=== PATIENT | female | born 1955 | race Caucasian/White ===

== ENCOUNTER → 2017-03-21 | Outpatient (CLI) | payer BC, OTHER ==
[~2017-03-21] MED LIST: ALPRAZOLAM PO; BENTYL PO; CELEBREX50 MG PO; CIPROFLOXACIN500 M3 PO; CREON DR 24,001 EACH PO; CREON PO; Creon PO; DOXYCYCLINE 10100 MG PO; FENTANYL 0.50 MCG/ML IV PUSH; HYDROCODON-ACE1 EAC8 PO; HYDROCODON-ACE1 EACH PO; HYOSCYAMIN125 MCG/5; IBUPROFEN 200200 M1 PO; INVANZ1 GM IV; KEFLEX500 MG PO; LEVSIN0.125 MG PO; LORAZEPAM 22 MG/1 ML IV PUSH; LORTAB 5 MG/5001 TA1 PO; MARINOL2.5 MG PO; MEGACE ES625 MG/5 M PO; MOBIC7.5 MG PO; NEURONTIN600 MG PO; NORCO 10-325 T1 EACH PO; NORCO 5-325 TA1 EACH PO; NORCO 7.5-3251 EACH PO; ONDANSETRON HCL4 M2 IV PUSH; OPIUM10 MG/1 ML; OXYCODONE20 MG/1 M1 PO; OXYCONTIN60 MG PO; PERCOCET 7.5-31 EACH PO; PERIDEX 0.12%473 M1; PROBIOTIC1 EAC1 PO; RELAFEN500 MG PO; REQUIP 1 MG TABL1 M1 PO; REQUIP PO; SODIUM CHLORID100 M4 IV; TRAMADOL 50 MG50 MG PO; VISTARIL 25 MG25 M1 PO; XANAX 0.25 MG0.25 MG PO
== END ==
LOC: CAT 10:59
DX: K86.1 Other chronic pancreatitis (principal)

== ENCOUNTER 2019-03-02 17:58 | Inpatient (IN) | payer BC, OTHER ==
[~2019-03-02] VITALS: Ht 167.6 cm; Wt 43.8 kg
[~2019-03-02 17:58] MED LIST changes: +CARAFATE 1 GM TA1 G1 PO; +LEVEMIR SUBQ; +LIDODERM1 EACH TRANSDERM; +MELATONIN3 MG PO; +NOVOLOG100 UNIT/1 SUBQ; +OMEPRAZOLE 20 M20 M1 PO; +OPIUM TINC10 MG/1 M1 PO; +OXYCODONE HCL20 M1 PO; +ROXICODONE5 MG PO; +UNICOMPLEX M TA1 TA1 PO; +VITAMIN A8000 UNI1 PO; +VITAMIN B-121000 MC3 PO; +VITAMIN D50000 UNIT PO; +ZOFRAN4 MG PO
[2019-03-02 18:29] VITALS: BP 145/85
[2019-03-02 18:34] LABS: URINE BILIRUBIN NEGATIVE (Negative); URINE BLOOD 1+ (Negative); URINE CLARITY CLEAR; URINE COLOR YELLOW; URINE GLUCOSE-RANDOM* NEGATIVE (Negative); URINE KETONES NEGATIVE (Negative); URINE LEUKOCYTES-REFLEX NEGATIVE (Negative); URINE NITRITE-REFLEX NEGATIVE (Negative); URINE PROTEIN (DIPSTICK) NEGATIVE (Negative); URINE SPECIFIC GRAVITY <= 1.005 (1.005-1.035); URINE UROBILINOGEN 0.2 E.U./dl (0.2-1.0)
[2019-03-02 19:19] LABS: BACTERIA-REFLEX 1-9 Few /HPF (None Seen); CASTS None Seen /LPF (None Seen); CRYSTALS None Seen /LPF (None Seen); SQUAMOUS 0-3 Few /LPF (0-3); URINE RBC None Seen /HPF (0-2); URINE WBC-REFLEX None Seen /HPF (0-5)
[2019-03-02 20:11] LABS: ABSOLUTE NEUTROPHILS 11.6 thou/uL (1.4-8.2); BASOPHILS 0.5 % (0.0-2.0); EOSINOPHILS 0.3 % (0.0-3.0); HEMATOCRIT 34.4 % (37.0-47.0); HEMOGLOBIN 11.3 gm/dL (12.0-15.0); LYMPHOCYTES 16.5 % (24.0-44.0); MCH 30.9 pg (26.0-34.0); MCV 93.7 fL (80.0-100.0); MONOCYTES 7.1 % (1.0-8.0); PLATELET COUNT 378 thou/uL (150-400); POLYS 75.6 % (36.0-66.0); RBC 3.67 mil/uL (4.20-5.00); RDW 14.5 % (10.5-14.5); WBC 15.4 thou/uL (4.0-11.0)
[2019-03-02 20:34] LABS: ANION GAP 8 mmol/L (7-16); BUN 8 mg/dL (7-18); CALCIUM 8.9 mg/dL (8.5-10.1); CHLORIDE 98 mmol/L (98-107); CO2 24 mmol/L (21-32); CREATININE 0.6 mg/dL (0.6-1.0); GLUCOSE 111 mg/dL (74-106); SODIUM 130 mmol/L (136-145)
[2019-03-02 20:44] LABS: ALBUMIN 3.4 g/dL (3.4-5.0); LIPASE 82 U/L (73-393); SGOT 23 U/L (15-37); SGPT 18 U/L (30-65); TOTAL BILIRUBIN 0.5 mg/dL (<0.1-1.0); TOTAL PROTEIN 7.1 g/dL (6.4-8.2); TROPONIN-I <0.06 ng/mL (<0.06)
[2019-03-02] MEDS ORDERED: CALTRATE-600 W1 EACH PO (22:47)
[2019-03-02] MEDS ORDERED: KIDS VITAMIN400 UNIT PO (22:48)
[2019-03-02] MEDS ORDERED: NOVOLOG100 UNIT/1 SUBQ (22:49)
[2019-03-02] MEDS ORDERED: CULTURELLE KID1 EAC1 PO (22:51)
[2019-03-02] MEDS ORDERED: TRAMADOL 50 MG50 MG PO (22:53)
[2019-03-03] VITALS (38 sets, daily range): BP systolic 124–168; BP diastolic 64–98
[2019-03-03 05:41] LABS: HEMATOCRIT 31.8 % (37.0-47.0); HEMOGLOBIN 10.4 gm/dL (12.0-15.0); MCH 30.8 pg (26.0-34.0); MCHC 32.7 g/dL (28.0-37.0); MCV 94.4 fL (80.0-100.0); RBC 3.37 mil/uL (4.20-5.00); RDW 14.5 % (10.5-14.5); WBC 12.4 thou/uL (4.0-11.0)
[2019-03-03 05:55] LABS: CALCIUM 8.6 mg/dL (8.5-10.1); CREATININE 0.6 mg/dL (0.6-1.0); POTASSIUM 3.8 mmol/L (3.5-5.1)
--- NOTE | 2019-03-03 07:20 | NUR ---
ASSUMED CARE OF PATIENT FROM IR. GROIN SITE INSPECTED. SON AT BEDSIDE, ABLE TO PROVIDE MOST INFORMATION. POC GOALS ESTABLISHED. PAIN MANAGEMENT MODERATLY EFFECTIVE. REPORT GIVEN TO DAY RN.
--- NOTE | 2019-03-03 08:38 | EKG ---
[place] [address] [facility] [place] [address] ELECTROCARDIOGRAM REPORT Name: ALMAZ JARRELL Room #: 245-P ADM IN M.R.#: [id number] Admission: 03/02/19 Attend Phys: Deena Hernandez Discharge: Date of : 55 Report #: [id number] THIS REPORT FOR: //name// [facility] ED Test Date: 2019-03-02 Test Time: 18:50:22 Pat Name: ALMAZ JARRELL Department: [facility] Gender: F Staking Press Operator: JEN : 1955 Requested By: Gavin Courtney Order Number: [id number] MD: Willie Peralta Measurements Intervals [place] Rate: 83 P: 79 NM: 142 QRS: 4 QRSD: 92 T: 33 QT: 366 QTc: 430 Interpretive Statements Sinus rhythm LAE, consider biatrial enlargement Abnormal inferior Q waves Compared to ECG 09/15/2006 10:17:22 Electronically Signed On 03-03-2019 8:38:46 ONION TOPPER by Willie Peralta [email or web address] <ELECTRONICALLY SIGNED> By: Willie Peralta MD 03/03/19 0838 49 49 Willie Peralta MD /ZACHARIAH
--- NOTE | 2019-03-03 13:37 | NUR ---
Chart reviewed and case discussed with the care team. Senior Property Accountant visited with the pt at bedside. Her sister Jessica is currently at bedside visiting. The pt is a&ox4 and indicates that she is normally active and independent. She lives in an apt and her son Clifford is currently staying with her. She has supportive family and wanted Clifford, Jennyfer her neice and Jessica her sister as spokespersons. She works a little over 30 hours a week and drives. Cm role introduced. No dc planning needs identified at this time. Will follow along should needs arise.
--- NOTE | 2019-03-03 18:59 | NUR ---
PT WAS TRANSFERRED FROM ICU W/ALL BELONGINGS AND FAMILY IN TOW. PT STATES SHE'S BEEN VERY HAPPY W/CARE. REPORT GIVEN TO NOC STAFF. EXTRA LINENS GIVEN TO PT AND FAMILY. IVF RUNNING, ON TELE. DOES RETURN DEMO ON HOW TO USE CALL LIGHT. ALL ENCOURAGED TO CALL FOR ANY NEEDS
--- NOTE | 2019-03-03 20:09 | NUR ---
ASSESSMENTS DOCUMENTED. RIGHT GROIN SITE DRESSING C/D/I. LEFT ABDOMINAL HEMATOMA PAINFUL - PRN MEDICATIONS GIVEN. ACCUCHECKS ACHS - NO INSULIN COVERAGE NEEDED. REPORTS POOR APPETITE. CONTINUE TO MONITOR HEMATOMA AND CONTROL PAIN. PT TRANSFERRED TO CCU ROOM 211. SON AT BEDSIDE DURING TRANSFER
[2019-03-04 03:20] VITALS: BP 148/74
[2019-03-04 05:13] LABS: HEMATOCRIT 29.2 % (37.0-47.0); HEMOGLOBIN 9.7 gm/dL (12.0-15.0); MCH 31.8 pg (26.0-34.0); MCHC 33.3 g/dL (28.0-37.0); MCV 95.5 fL (80.0-100.0); RBC 3.06 mil/uL (4.20-5.00); RDW 14.6 % (10.5-14.5); WBC 10.8 thou/uL (4.0-11.0)
[2019-03-04 05:16] LABS: CALCIUM 8.8 mg/dL (8.5-10.1); CREATININE 0.5 mg/dL (0.6-1.0); POTASSIUM 3.5 mmol/L (3.5-5.1)
--- NOTE | 2019-03-04 06:25 | NUR ---
ASSUMED CARE OF PATIENT AT 1900. VSS, AFEBRILE. PAIN MANAGEMENT MARGINALLY EFFECTIVE. HEMATOMA SAME IN SIZE. GROIN SITE C/D/I. SON AT BEDSIDE. ALL QUESTIONS ANSWERED. WILL CONTINUE TO MONITOR.
[2019-03-04 08:00] VITALS: BP 149/73
--- NOTE | 2019-03-04 09:39 | H ---
[facility] [place] [address] HISTORY AND PHYSICAL Name: ALMAZ JARRELL Elizabeth Room #: 211-P ADM IN M.R.#: [id number] Admission: 03/02/19 Attend Phys: Deena Hernandez Discharge: Date of : 55 Report #: [id number] THIS REPORT FOR: //name// CC: Travis Mcdaniels DATE OF SERVICE: 03/03/2019 CHIEF COMPLAINT: Abdominal pain. HISTORY OF PRESENT ILLNESS: The patient is a 63-year-old female sent to the Emergency Room with abdominal pain. She was seen in the office and said she developed spontaneous left lower quadrant abdominal pain about 4 hours prior to presentation, she noted increased swelling along the abdominal wall. A CT through the ER showed a bleeding rectus sheath hematoma and she had undergone embolization procedure. PAST MEDICAL HISTORY: Diabetes type 2 related to chronic pancreatitis. She had a complicated pseudocyst with surgical intervention and long hospital stays in 2000, also treated for Crohn's disease. She had a previous PEG tube. PAST SURGICAL HISTORY: Cholecystectomy, appendectomy, partial splenectomy. FAMILY HISTORY: Noncontributory. SOCIAL HISTORY: She works in a school cafeteria. No chronic alcohol or tobacco use. ALLERGIES: None. MEDICATIONS: Tramadol, acidophilus, NovoLog, vitamin D, oxycodone, melatonin, Lidoderm, Levsin, multivitamin, Zofran, Requip, gabapentin, Xanax, omeprazole. REVIEW OF SYSTEMS: Complains of abdominal pain and swelling. Otherwise, no headache, chest pain, shortness of breath, dysuria, syncope or fall. OBJECTIVE: VITAL SIGNS: Temperature 36.4, pulse 62, respirations 15, blood pressure 155/69, O2 sat 96% on room air. GENERAL: She is awake and alert, in no distress. LUNGS: Clear. HEART: Regular. ABDOMEN: Soft, normoactive bowel sounds. There is distention and protrusion of the left lower quadrant tender. EXTREMITIES: No edema. LABORATORY DATA: Hemoglobin is 10. [facility] [place] [address] HISTORY AND PHYSICAL Name: ALMAZ JARRELL Room #: [facility] IN [facility]#: [id number] Admission: 03/02/19 Attend Phys: Deena Hernandez Discharge: Date of : 55 Report #: [id number] ASSESSMENT: 1. Spontaneous rectus sheath hemorrhage with hematoma, status post embolization. 2. Abdominal pain due to the above. 3. Chronic pancreatitis. 4. Chronic abdominal pain syndrome due to chronic pancreatitis. 5. Chronic narcotic use. 6. Diabetes type 2 related to chronic pancreatitis. PLAN: She will be watched continuously for now in ICU. Hemoglobin remained stable. I will resume her home pain regimen. <ELECTRONICALLY SIGNED> By: Oneil Moya MD 03/04/19 0939 [id number] Oneil Moya MD /nt
[2019-03-04 12:00] VITALS: BP 143/83
[2019-03-04 16:00] VITALS: BP 140/73
--- NOTE | 2019-03-04 19:44 | NUR ---
Patient AOX4. VSS. Patient had pain in her lower abdomen at area where hematoma is. Her order of Oxycodone 20 mg q 6 hours seems to have her pain under control at this time. Patient has steady gait and is able to take herself to the restroom. She is anxious to get out and walk the halls. No other events or concerns at this time. Son is at bedside.
[2019-03-04 20:21] VITALS: BP 158/80
[2019-03-05 03:47] VITALS: BP 130/70
[2019-03-05 04:32] LABS: HEMATOCRIT 27.3 % (37.0-47.0); HEMOGLOBIN 9.1 gm/dL (12.0-15.0)
--- NOTE | 2019-03-05 05:29 | NUR ---
ASSUMED PT CARE AT 1900, VSS. PT A&0X4. PT IS STABLE ON FEET, AMBULATING IN THE HALLWAY WITH NO ISSUES. COMPLAINED OF LLQ ABD PAIN, PAIN MANAGED PER MAY. PT IS STABLE ON THE MONITOR NO FURTHER COMPLAINTS THROUGH THE NIGHT. SHOULD D/C TODAY.
[2019-03-05 08:00] VITALS: BP 140/79
[2019-03-05 11:13] LABS: INR 1.2; PROTIME 12.1 Seconds (9.3-11.4)
[2019-03-05 12:18] VITALS: BP 137/74
[2019-03-05 16:00] VITALS: BP 137/78
--- NOTE | 2019-03-05 18:27 | NUR ---
ASSUMMED PT CARE AT APPROXIMATELY 0700. A&O X4. ASSESSMENT CHARTED. FALL PRECAUTIONS IN PLACE. PT DENIES HAVING CHEST PAIN. PT DENIES HAVING SOB. PT STATED SHE HAD ACUTE PAIN IN HER LLQ OF HER ABDOMEN WHERE HER HEMATOMA IS. PT RECEIVED ANALGESICS. PT STATED ANALGESICS HELPED DECREASE PAIN. PT AND PT'S FAMILY EDUCATED ABOUT POC. PT AND PT'S FAMILY STATED UNDERSTANDING AND DENIED HAVING FURTHER QUESTIONS. DR NOTIFIED OF PT NOT HAVING A BM IN THE PAST FEW DAYS. ORDERED NEW MEDICATION. IMPLEMENTED NEW ORDER. WILL CONTINUE TO MONITOR FOR A BM. R GROIN C/D/I. NO HEMATOMA. VITAL SIGNS STABLE. BLOOD SUGARS STABLE. PT COMFORTABLE IN BED. PT DENIES HAVING FURTHER CONCERNS.
[2019-03-05 20:22] VITALS: BP 151/71
[2019-03-06 03:51] VITALS: BP 130/53
--- NOTE | 2019-03-06 03:59 | NUR ---
A/O X 4.UP INDEPENDENTLY.PAIN WELL CONTROLLED.NO BM THIS SHIFT.BEDTIME BLOOD GLUCOSE IS 188.MONITOR SHOWS SR.POC CONTINUED.
[2019-03-06 07:30] VITALS: BP 135/77
--- NOTE | 2019-03-06 08:28 | NUR ---
ASSUMED CARE OF PT APPROX 0715, STATES SHE IS SO READY TO LEAVE, RATES PAIN IN LOWER LEFT ABD AT 7/10, CLEAR LUNGS, SON PRESENT. D/C WRITTEN, LET FAMILY KNOW ABOUT THE ETA OF THE D/C, THEY STATE UNDERSTANDING. SEE SEPARATE INTERVENTIONS FOR ASSESSMENTS, ENCOURAGED ALL TO USE CALL LIGHT FOR ANY NEEDS, HAD SMALL BM THIS A.M.
[2019-03-06 10:42] VITALS: BP 135/77
--- NOTE | 2019-03-09 13:02 | D ---
[facility] [place] [address] DISCHARGE SUMMARY Name: CHRYSTALALMAZ Elizabeth Room #: [facility] IN ..#: [id number] Admission: 03/02/19 Attend Phys: Deena Hernandez Discharge: 03/06/19 Date of : 55 Report #: [id number] THIS REPORT FOR: //name// CC: Travis Mcdaniels FINAL DIAGNOSES: 1. Left rectus sheath hematoma. 2. Acute blood loss anemia. HOSPITAL COURSE: The patient was admitted with acute onset of left mid abdominal pain. She was diagnosed with a spontaneous rectus sheath hemorrhage and underwent an embolization procedure by IR. This stabilized the bleeding, but she was left with a very large hematoma in the left rectus sheath. She underwent an ultrasound and attempts at drainage by IR. Unfortunately, hematoma has clotted off at this point and was unable to be aspirated. Dr. Monet recommended a repeat ultrasound in 10-14 days if she is still having discomfort to attempt IR ultrasound-guided drainage at that point. Other home medications were continued. She had no other interval complication. Her hemoglobin did drop down to about the mid-9 range, but she was asymptomatic. PHYSICAL EXAMINATION: On the day of discharge: GENERAL: She was awake and alert. VITAL SIGNS: Temperature 36.6, pulse 73, respirations 18, blood pressure 130/53, O2 sat 97% on room air. LUNGS: Clear. HEART: Regular. ABDOMEN: Soft, normoactive bowel sounds. There is a large subcutaneous tender mass with ecchymoses in the left mid lower abdomen. EXTREMITIES: Showed no edema. DISPOSITION: She is discharged to home with diet and activity as tolerated, diabetic diet. Follow up in 1 week. Consideration for ultrasound-guided IR drainage in 7-10 days if her hematoma has not resolved. <ELECTRONICALLY SIGNED> By: Oneil Moya MD 03/09/19 1302 0819 0839 Oneil Moya MD /nt
== END 2019-03-06 10:00 | disposition home or self-care (01) | DRG 271 ==
LOC: ER 17:58 → EROBS 23:01 → ICU 23:01 → EROBS 23:57 → ICU 03-03 00:41 → 2N 03-03 18:24
PROVIDERS: Emergency Medicine; Internal Medicine Geriatric Medicine; Radiology Diagnostic Radiology; ADMIT Internal Medicine
DX: R58 Hemorrhage, not elsewhere classified (principal); D62 Acute posthemorrhagic anemia; K50.90 Crohn's disease, unspecified, without complications; K86.1 Other chronic pancreatitis; M79.81 Nontraumatic hematoma of soft tissue; I70.0 Atherosclerosis of aorta; E11.9 Type 2 diabetes mellitus without complications; Z90.49 Acquired absence of other specified parts of digestive tract; Z90.411 Acquired partial absence of pancreas; Z90.89 Acquired absence of other organs; Z79.4 Long term (current) use of insulin; Z79.811 Long term (current) use of aromatase inhibitors; Z79.891 Long term (current) use of opiate analgesic; Z79.899 Other long term (current) drug therapy; Z93.1 Gastrostomy status; Z87.891 Personal history of nicotine dependence; Z90.81 Acquired absence of spleen
CPT/HCPCS: 10081

== ENCOUNTER → 2019-03-15 | Outpatient (CLI) | payer BC, OTHER ==
[~2019-03-15] MED LIST changes: +CALTRATE-600 W1 EACH PO; +CULTURELLE KID1 EAC1 PO; +KIDS VITAMIN400 UNIT PO
== END | disposition home or self-care (01) ==
LOC: ULTRA 10:21
DX: R10.32 Left lower quadrant pain (principal); M79.81 Nontraumatic hematoma of soft tissue; K86.1 Other chronic pancreatitis; K50.90 Crohn's disease, unspecified, without complications; E11.9 Type 2 diabetes mellitus without complications; F41.9 Anxiety disorder, unspecified; Z98.890 Other specified postprocedural states; Z79.899 Other long term (current) drug therapy; Z79.891 Long term (current) use of opiate analgesic; Z90.49 Acquired absence of other specified parts of digestive tract; Z87.891 Personal history of nicotine dependence; Z79.4 Long term (current) use of insulin

== ENCOUNTER → 2020-05-02 | Outpatient (CLI) | payer OTHER | LOC: LAB 11:28 | PROVIDERS: ATTEND Internal Medicine | DX: R05 Cough (principal); Z20.822 Contact with and (suspected) exposure to COVID-19 ==

== ENCOUNTER 2020-08-11 16:07 | Inpatient (IN) | payer OTHER ==
[~2020-08-11] VITALS: Ht 172.7 cm; Wt 50.2 kg
[2020-08-11 16:15] VITALS: BP 106/81
[2020-08-11 16:34] LABS: ABSOLUTE NEUTROPHILS 8.7 thou/uL (1.4-8.2); BASOPHILS 0.3 % (0.0-2.0); EOSINOPHILS 0.1 % (0.0-3.0); HEMATOCRIT 33.1 % (37.0-47.0); LYMPHOCYTES 9.8 % (24.0-44.0); MCH 32.4 pg (26.0-34.0); MCHC 33.1 g/dL (28.0-37.0); MCV 97.7 fL (80.0-100.0); MONOCYTES 6.7 % (1.0-8.0); PLATELET COUNT 395 thou/uL (150-400); POLYS 83.1 % (36.0-66.0); RBC 3.39 mil/uL (4.20-5.00); RDW 14.8 % (10.5-14.5); WBC 10.5 thou/uL (4.0-11.0)
[2020-08-11 16:44] LABS: CALCIUM 7.7 mg/dL (8.5-10.1); CREATININE 1.5 mg/dL (0.6-1.0); POTASSIUM 3.7 mmol/L (3.5-5.1)
[2020-08-11 16:50] LABS: ALBUMIN 1.2 g/dL (3.4-5.0); TOTAL BILIRUBIN 0.5 mg/dL (0.2-1.0); TOTAL PROTEIN 5.6 g/dL (6.4-8.2)
[2020-08-11 17:02] LABS: APTT 48.1 Seconds (24.5-32.8); INR 2.36; PROTIME 24.7 Seconds (10.5-12.1)
[2020-08-11 17:40] LABS: URINE BILIRUBIN NEGATIVE (Negative); URINE BLOOD NEGATIVE (Negative); URINE CLARITY CLEAR; URINE COLOR YELLOW; URINE GLUCOSE-RANDOM* NEGATIVE (Negative); URINE KETONES NEGATIVE (Negative); URINE LEUKOCYTES-REFLEX NEGATIVE (Negative); URINE NITRITE-REFLEX NEGATIVE (Negative); URINE PROTEIN (DIPSTICK) TRACE (Negative); URINE UROBILINOGEN 0.2 E.U./dl (0.2-1.0)
--- NOTE | 2020-08-11 17:45 | NUR ---
PT NOTES EATING DRINKING WELL THOUGH PT APPEARS VERY FRAIL AND EMACIATED TO THIS RN. PT DOES NOTE THAT SHE HAD "A LOT" OF DIARRHEA YESTERDAY THAT HAS NOW SUBSIDED. PT DENIES NAUSEA OR ABDOMINAL PAIN. PT STATES HX OF CROHNS AND IS UNSURE IF SHE IS IN REMISSION OR NOT. PT DENIES CHEST PAIN, COUGH OR ANY OTHER RESPIRATORY S/S. PT NOTES SHE HAS GOTTEN BOTH OF HER COVID-19 VACCINATIONS. PT NOTES SON HAD TO HELP HER UP THIS AM AFTER HER FALL. PT DENIES USING ASSISTIVE DEVICES AT HOME. PT NOTES FREQUENT FALLS RECENTLY D/T LOSING HER BALANCE. PT NOTES SHE HAS HIT HER HEAD BUT NOT WITH THIS LAST FALL. PT HAS HEALING ABRASION ABOVE LEFT EYEBROW AND EARLY STAGES OF BRUISING NEXT TO OLD ABRAISION, PT STATES BRUSING HAS SINCE APPEARED AFTER FALL THIS AM.
--- NOTE | 2020-08-11 18:59 | NUR ---
REPORT GIVEN TO MEGHAN MCCULLOUGH AT THIS TIME
[2020-08-11 19:55] VITALS: BP 104/74
[2020-08-11 20:30] VITALS: BP 115/63
[2020-08-11] MEDS ORDERED: XARELTO10 M1 PO (23:04)
--- NOTE | 2020-08-12 03:56 | NUR ---
ASSESSMENTS CHARTED, MEDS CHARTED GIVEN. PATIENT ADMITTED FROM ED AROUND 2100 WITH PLEURAL EFFUSIONS AND LOWER EXTREMETIES EDEMA. FELL AT HOME EARLIER IN THE DAY AND PREVIOUSLY DURING THE WEEK. PATIENT SETTLED INTO ROOM AND ADMITTED INTO COMPUTER. PATIENT HAS WOUNDS ON ARRIVAL. FALL PRECAUTIONS IN PLACE DURING SHIFT.
[2020-08-12 04:51] VITALS: BP 101/61
[2020-08-12 06:04] LABS: HEMATOCRIT 29.2 % (37.0-47.0); HEMOGLOBIN 9.8 gm/dL (12.0-15.0); MCHC 33.5 g/dL (28.0-37.0); MCV 95.6 fL (80.0-100.0); RBC 3.05 mil/uL (4.20-5.00); RDW 14.4 % (10.5-14.5); WBC 5.7 thou/uL (4.0-11.0)
[2020-08-12 06:23] LABS: ALBUMIN 0.8 g/dL (3.4-5.0); CALCIUM 7.2 mg/dL (8.5-10.1); CREATININE 1.1 mg/dL (0.6-1.0); POTASSIUM 3.5 mmol/L (3.5-5.1); TOTAL BILIRUBIN 0.5 mg/dL (0.2-1.0); TOTAL PROTEIN 4.3 g/dL (6.4-8.2)
--- NOTE | 2020-08-12 09:54 | NUR ---
PT IS AXOX4, PLEASANT, C/O PAIN IN ABDOMEN FROM PANCREATITIS. DR LINCOLN CONSULTED. DISCUSSED WITH PT NEUROPATHY AND OPTIONS FOR MANAGING. VSS, AFEBRILE, SR ON MONITOR. WILL CONTINUE TO MONITOR BLE EDEMA/CIRCULATION. POC PAIN MGMT, ABX THERAPY, AND IMPROVING MOBILITY. PHYS THERAPY CONSULTED. FALL PRECAUTIONS IN PLACE. FREQUENT ROUNDING.
[2020-08-12 12:18] VITALS: BP 108/54
[2020-08-12 16:00] VITALS: BP 100/68
[2020-08-12 20:48] VITALS: BP 102/63
[2020-08-13 05:15] VITALS: BP 110/62
--- NOTE | 2020-08-13 07:40 | NUR ---
ASSUME CARE 1900. PT/VITALS STABLE. INTERMITTENT ABDOMINAL/BLE PAIN. MODERATE ENDURANCE TO ACTIVITY. SR ON MOHNITOR WITH HR CONTROLLED. NO DISTRESS NOTED THROUGH THE NIGHT. CDIFF POSITIVE. NOTED 2 FORMED BMS THROUGH THE SHIFT. ASSESSMENT CHARTED. PROGRESSING SLOWLY WITH POC. PLAN TO TO CONTINUE TO DIURESE PT. NO URINE OUTPUT NOTED THROUGH THE NIGHT. BLADDER SCAN NOTED 202ML IN BLADDER. PT DENIES ANY URGE TO VOID. WILL COMMUNICATE FINDINGS TO MD.
[2020-08-13 08:00] VITALS: BP 81/51
--- NOTE | 2020-08-13 09:18 | NUR ---
ASSUMED PT CARE AT 0700. 0845, ASSESSMENT PERFORMED CHARTED. PT C/O PAIN. AWAITING RX TO SEND MED/FIX PYXIS, MEDICATION ADMINISTRATION. VSS. WILL CONTINUE TO MONITOR AND FOLLOW POC.
[2020-08-13 12:00] VITALS: BP 86/50
--- NOTE | 2020-08-13 15:44 | NUR ---
PT SITTING UP IN CHAIR, RESTING. ASSESSMENT UNCHANGED. VSS. WILL CONTINUE TO MONITOR AND FOLLOW POC.
[2020-08-13 16:00] VITALS: BP 92/58
--- NOTE | 2020-08-14 04:17 | NUR ---
ASSESSMENT DOCUMENTED.PT BEEN RESTING IN NO ACUTE DISTRESS.A/OX4.PT SEEMS FATIGUED EASILY W/ACTIVITIES.ON ISOLATION FOR C-DIFF.PT STILL HAVING MUTIPLE SMALL LOOSE STOOL.STAFF ASSIST WITH TOILETING AND PERICARE.PT/OT D/T GENERALIZED WEAKNESS.LEFT HIP ABRASION WEEPING.JENNIFER HEELS ELEVATED.WILL CONT TO MONITOR PER POC.
[2020-08-14 05:10] VITALS: BP 94/57
[2020-08-14 07:50] VITALS: BP 89/55
--- NOTE | 2020-08-14 08:10 | NUR ---
ASSUMED PT CARE AT 0700. PT PREPARING FOR ECHOCARDIOGRAM. PT IN BED, PT STATES SHE IS STILL HAVING MILD DISCOMFORT IN HER ABD. PT NOTIFIED SHE MAY HAVE TYLENOL BUT NOT DUE FOR OXYCODONE. ASSESSMENT PERFORMED CHARTED. VSS. WILL CONTINUE TO MONITOR AND FOLLOW POC.
--- NOTE | 2020-08-14 08:22 | EKG ---
[address] [place] [address] ELECTROCARDIOGRAM REPORT Name: ALMAZ JARRELL Room #: 219-P ADM IN M.R.#: [id number] Admission: 08/11/20 Attend Phys: Vidal Chapin MD Discharge: Date of : 55 Report #: [id number] [facility] ED Test Date: 2020-08-11 Test Time: 18:14:37 Pat Name: ALMAZ JARRELL Department: Room: 219 Gender: F Metal Pourer: RHONDA : 1955 Requested By: Kaylan Carrillo Order Number: [id number] MD: Franc Brown Measurements Intervals [place] Rate: 79 P: 87 NV: 114 QRS: 70 QRSD: 94 T: 68 QT: 393 QTc: 451 Interpretive Statements Sinus rhythm Borderline short NV interval Small inferior Q waves Compared to ECG 03/02/2019 18:50:22 No significant change was found Electronically Signed On 08-14-2020 8:22:28 CDT by Franc Brown [email or web address] <ELECTRONICALLY SIGNED> By: Franc Brown MD, [facility] 08/14/20821 13 13 Franc Brown MD, [facility] /EPI
--- NOTE | 2020-08-14 08:56 | 2DMMODE ---
[facility] [place] [address] 2 D/M-MODE ECHOCARDIOGRAM Name: ALMAZ JARRELL Room #: 219-P ADM IN M.R.#: [id number] Admission: 08/11/20 Attend Phys: Vidal Chapin MD Discharge: Date of : 55 Report #: [id number] THIS REPORT FOR: cc: Travis Mcdaniels MD, Christopher B. MD Lundgren,Franc Izquierdo MD [facility] ~ APPROVED REPORT Study performed: 08/14/2020 07:58:12 EXAM: Comprehensive 2D, Doppler, and color-flow Echocardiogram Patient Location: Bedside Room #: 219 Status: routine BSA: 1.53 HR: 96 bpm BP: 94/57 mmHg Rhythm: NSR Other Information Study Quality: Fair/poor windows/not all measurements taken Technically limited study due to no mobility, thin body habitus.. Indications Edema, elevated BNP, rule out CHF. 2D Dimensions IVSd: 10.48 (7-11mm) LVOT Diam: 17.94 (18-24mm) LVDd: 28.89 mm PWd: 10.20 (7-11mm) LVDs: 19.98 (25-40mm) Left Atrium: 22.80 (27-40mm) Aortic Root: 26.14 mm Aortic Valve AoV Peak Trung.: 1.67 m/s AO Peak Gr.: 11.11 mmHg LVOT Max P.02 mmHg LVOT Max V: 1.00 m/s MALIK Vmax: 1.52 cm2 Mitral Valve E/A Ratio: 0.9 [facility] [address] [place] [address] 2 D/M-MODE ECHOCARDIOGRAM Name: ALMAZ JARRELL Room #: 219-P [facility]#: [id number] Admission: 08/11/20 Attend Phys: Vidal Chapin, Discharge: Date of : 55 Report #: [id number] MV Decel. Time: 172.04 ms MV E Max Trung.: 0.74 m/s MV A Trung.: 0.86 m/s MV PHT: 49.89 ms Pulmonary Valve PV Peak Trung.: 1.16 m/s PV Peak Gr.: 5.41 mmHg Tricuspid Valve TR Peak Trung.: 2.70 m/s RAP Estimate: 5.00 mmHg TR Peak Gr.: 29.00 mmHg PA Pressure: 34.00 mmHg Left Ventricle The left ventricle is normal size. There is normal LV segmental wall motion. There is normal left ventricular wall thickness. Left ventricular systolic function is normal. LVEF is 60-65%. Mild diastolic dysfunction Right Ventricle The right ventricle is normal size. The right ventricular systolic function is normal. Atria The left atrium size is normal. The right atrium size is normal. Aortic Valve The aortic valve is difficult to visualize. No aortic regurgitation is present. There is no aortic valvular stenosis. Mitral Valve The mitral valve is normal in structure. There is no mitral valve regurgitation noted. No evidence of mitral valve stenosis. Tricuspid Valve The tricuspid valve is normal in structure. Trace tricuspid regurgitation. Estimated pulmonary artery pressure of 35mmHg. Pulmonic Valve Pulmonic valve is not well visualized. Great Vessels The aortic root is normal in size. Ascending aorta is not well visualized. IVC is normal in size and collapses >50% with [facility] [address] [place] [address] 2 D/M-MODE ECHOCARDIOGRAM Name: ALMAZ JARRELL Room #: 219-P [facility] IN .R.#: [id number] Admission: 08/11/20 Attend Phys: Vidal Chapin, Discharge: Date of : 55 Report #: [id number] inspiration. Pericardium There is no pericardial effusion. Left pleural effusion. <Conclusion> Technically difficult study Left ventricular systolic function is normal. There is normal LV segmental wall motion. LVEF is 60-65%. Mild diastolic dysfunction The aortic valve is difficult to visualize. No aortic regurgitation or stenosis The mitral valve is normal in structure. No mitral valve regurgitation. Trace tricuspid regurgitation. Estimated pulmonary artery pressure of 35mmHg. There is no pericardial effusion. <ELECTRONICALLY SIGNED> By: Franc Brown MD, [facility] 08/14/20 0856 Franc Brown MD, [facility] /INF
--- NOTE | 2020-08-14 09:34 | NUR ---
WOUND CONSULT; THIS PATIENT WAS FOUND ON THE GROUND FOR A UNDETERMINED AMOUNT OF TIME. THE PATIENT HAS ABRAISIONS TO THE LOWER EXT BILATERALLY BRUISING (DTI?). THE RIGHT HEEL AND RIGHT 3-5 TOES (DTI?) THE LEFT GREAT TOE HAS ERYTHEMA WITH BRUSING(DTI?) THE SACRUM WAS NOT ASSESSED BUT THE PICTURE SHOWS ERYTHEMA (UNABLE TO ASSESS) THE PATIENT WAS EATING BREAKFAST. S/S OF A PRESSURE INJURY FORM THE PICTURE. THE FEET ARE WARM. RECOMMENDATIONS; CONSULT DR LULY SORIANO. -LOW AIR LOSS PUMP. -Q2H TURNING. DISCUSSED WITH MEGHAN
[2020-08-14 11:25] VITALS: BP 90/61
--- NOTE | 2020-08-14 12:33 | NUR ---
pt resting, pt appears to be more weak today. vss. assessment unchanged. will continue to monitor and follow poc.
[2020-08-14 16:10] VITALS: BP 88/59
[2020-08-14 20:22] VITALS: BP 101/57
[2020-08-15] VITALS (13 sets, daily range): BP systolic 94–111; BP diastolic 50–72
[2020-08-15 04:50] LABS: HEMATOCRIT 29.3 % (37.0-47.0); MCH 33.2 pg (26.0-34.0); MCHC 34.3 g/dL (28.0-37.0); MCV 96.9 fL (80.0-100.0); RBC 3.02 mil/uL (4.20-5.00); RDW 14.8 % (10.5-14.5); WBC 12.1 thou/uL (4.0-11.0)
--- NOTE | 2020-08-15 04:53 | NUR ---
PT RESTING IN BED AT THIS TIME.PT REMAINS A/OX4.VSS.FATIGUES VERY EASILY W/ACTIVITIES.SEEMS DROWSY AND LETHARGIC.COMPLAINS PAIN TO BILATERAL LEGS AND MILD DISCOMFORT TO ABD.DENIES NAUSEA.PAIN MEDS GIVEN WITH PARTIAL CONTROL OF PAIN.INCONTINENT OF BLADDER THIS SHIFT.PERIAREA EDEMA NOTED.PT ASSESSMENT COMPLETED DOCUMENTED.
[2020-08-15 05:19] LABS: CALCIUM 7.2 mg/dL (8.5-10.1); CREATININE 1.3 mg/dL (0.6-1.0); POTASSIUM 3.3 mmol/L (3.5-5.1)
--- NOTE | 2020-08-15 09:37 | NUR ---
Met with patient she admits with pleural effusion. 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 no hx of using any dme. Patient reports she lives in independent home with her son. She reports she feels weak and concerns with her feeling so weak. Therapy evals in process, casemgt following.
--- NOTE | 2020-08-15 10:10 | NUR ---
remained npo for recently ordered aortogram. rn notified pt's sister Jessica- updated on plan for immediate procedure, then requested her to call Clifford, pt's son. phone call and notification of pt's son completed per pt request. consent signed.
--- NOTE | 2020-08-15 12:21 | HC ---
[facility] [place] [address] CONSULTATION Name: ALMAZ JARRELL Room #: 219-P ADM IN M.R.#: [id number] Admission: 08/11/20 Attend Phys: Vidal Chapin MD Discharge: Date of : 55 Report #: [id number] THIS REPORT FOR: cc: Travis Mcdaniels MD, Christopher B. MD Stephens, Thad A. MD ~ DOC #: [id number] Vickey Jack MD DATE OF SERVICE: 08/14/2020 WOUND CARE CONSULTATION CHIEF COMPLAINT: Multiple wounds. HISTORY OF PRESENT ILLNESS: This is a 65-year-old white female, who is hospitalized for multiple complaints, the biggest of which was abdominal pain. The patient has a history of colitis. Upon admission, the patient was noted to have multiple wounds to her knees, right heel. We have been asked to care for the wounds while she is here being hospitalized. The patient denies any other associated wounds. PAST MEDICAL HISTORY: Significant for pancreatitis, Crohn's disease, splenectomy, cholecystectomy, type 2 diabetes, venous insufficiency with lower extremity edema. CURRENT MEDICATIONS: Multiple, I reviewed the patient's medication list. DRUG ALLERGIES: None. SOCIAL HISTORY: The patient has a remote history of smoking. Denies alcohol use. FAMILY HISTORY: Not pertinent to current medical condition. REVIEW OF SYSTEMS: CONSTITUTIONAL: The patient denies fevers or chills. NEUROLOGIC: The patient complains of overall generalized weakness, but no isolated weakness in arms and legs. EYES: No complaints. ENT: No complaints. CARDIOVASCULAR: The patient denies chest pain, palpitations. Has chronic lower extremity edema. RESPIRATORY: No shortness of breath, cough, wheezes. GASTROINTESTINAL: The patient has abdominal pain with associated nausea, but no vomiting. GENITOURINARY: The patient denies urgency or frequency. [facility] [address] [place] [address] CONSULTATION Name: ALMAZ JARRELL Room #: 219-P [facility] IN [facility]#: [id number] Admission: 08/11/20 Attend Phys: Vidal Chapin MD Discharge: Date of : 55 Report #: [id number] MUSCULOSKELETAL: No complaints. SKIN: There is wound on both lower extremities and right heel. PHYSICAL EXAMINATION: VITAL SIGNS: Temperature 36.8, pulse 96, respirations 22, BP 90/61. GENERAL: This is a chronically ill-appearing white female, who is in no obvious distress. HEENT: Normocephalic, atraumatic. Mucous membranes are dry. Pupils are round. NECK: Without JVD. LUNGS: Slightly diminished breath sounds heard throughout. HEART: Regular. ABDOMEN: Soft, mild diffuse tenderness without rebound or guarding. EXTREMITIES: The patient has superficial abrasions to the bilateral knees. Evaluation of the right heel reveals an unstageable decubitus ulcer, which is 100% slough filled, but no signs of erythema or warmth. Distal pulses are 1+. NEUROLOGIC: Cranial nerves II-XII grossly intact. Motor and sensory are grossly intact. LABORATORY DATA: White count 5.7, hemoglobin 9.8, albumin 0.8. ASSESSMENT: 1. Unstageable decubitus ulcer, right heel. 2. Traumatic abrasions to the bilateral knees without signs of infection. 3. Severe protein-calorie malnutrition with albumin of 0.8. PLAN: We will start Xeroform and ABD to the bilateral knees, changes daily. We will place a foam dressing over the right heel ulcer, also changes daily. We will check arterial Dopplers to evaluate for arterial inflow. Make sure we maximize protein supplementation for healing. We will continue all of her current medications now. Vickey Jack MD [facility] <ELECTRONICALLY SIGNED> By: Vickey Jack MD 08/15/20 1221 1147 0037 Vickey Jack MD /nt
--- NOTE | 2020-08-15 15:00 | NUR ---
returned about 1400 from aortagram with placement of 1 stent in R iliac and 3 stents in L iliac. complexion pale, gimenez. feet cool/cold, less red, less dusky than prior to procedure. 3-4 toes on r foot with tips of toes cyanotic. warm blankets applied all over and especially under and around lexi lower extremities/feet. bp marginal, narcotic pain meds not administered at this time. pt resting quietly when undisturbed. family present, updated and providing support.
[2020-08-16 03:49] VITALS: BP 111/58
--- NOTE | 2020-08-16 04:21 | NUR ---
ordered heel protector boots. House sup notified of need for this illi. heels elevated and postion changes q2 hours. she is continually verbalizing "OW". she can answer question correctly but she needs close eye contact and asking at least twice. she is hyperfocused on her abdominal cramping. she communicated that her feet and legs pain is under control.
--- NOTE | 2020-08-16 04:41 | NUR ---
pts sister Jessica; wants a phone call from the physician today with an update on her sisters condition. [phone]
[2020-08-16 05:12] LABS: HEMATOCRIT 29.4 % (37.0-47.0); HEMOGLOBIN 9.8 gm/dL (12.0-15.0); MCH 33.4 pg (26.0-34.0); MCHC 33.2 g/dL (28.0-37.0); MCV 100.5 fL (80.0-100.0); RBC 2.93 mil/uL (4.20-5.00); RDW 15.3 % (10.5-14.5); WBC 9.6 thou/uL (4.0-11.0)
[2020-08-16 05:34] VITALS: BP 83/46
[2020-08-16 05:50] LABS: CALCIUM 7.1 mg/dL (8.5-10.1); CREATININE 1.5 mg/dL (0.6-1.0)
[2020-08-16 05:51] VITALS: BP 144/47
[2020-08-16 05:58] LABS: POTASSIUM 4.6 mmol/L (3.5-5.1)
[2020-08-16 08:23] VITALS: BP 101/54
--- NOTE | 2020-08-16 08:25 | NUR ---
ASSUMED PT CARE AT 0700, PT IN BED, 0800 PT ASSESSMENT PERFORMED. PT ALERT TO SELF ONLY. PT IS CONFUSED, CANNOT ANSWER ANY OTHER ORIENTATION QUESTIONS. VSS. WILL CONTINUE TO MONITOR AND FOLLOW POC.
[2020-08-16 09:47] LABS: BE(vivo) -9.3 mmol/L (-2 to +3); HCO3 15.6 mmol/L (22.0-26.0); PCO2 30.3 mmHg (35.0-45.0); PO2 44.7 mmHg (80.0-100.0); pH 7.329 (7.360-7.450); sO2 78.3 % (92.0-98.0)
--- NOTE | 2020-08-16 12:02 | NUR ---
PTS ASSESSMENT UNCHANGED. PT APPEARS TO BE RESTING COMFORTABLY AT THE MOMENT, VSS. WILL CONTINUE TO MONITOR AND FOLLOW POC.
--- NOTE | 2020-08-16 15:37 | NUR ---
patient evaled by 5N who will follow as patient not feeling well today.
[2020-08-16 16:17] VITALS: BP 94/56
--- NOTE | 2020-08-16 16:19 | NUR ---
PTS ASSESSMENT CHARTED. PT ALERT TO SELF, TIME, AND STATES SHE IS IN THE HOSPITAL BUT THINKS ITS PROVIDENCE. REPEAT ABG BEING PERFORMED NOW, WILL AWAIT RESULTS. VSS. WILL CONTINUE TO MONITOR AND FOLLOW POC.
[2020-08-16 16:32] LABS: BE(vivo) -4.2 mmol/L (-2 to +3); HCO3 19.8 mmol/L (22.0-26.0); PCO2 32.4 mmHg (35.0-45.0); PO2 62.5 mmHg (80.0-100.0); pH 7.404 (7.360-7.450); sO2 92.3 % (92.0-98.0)
[2020-08-16 19:56] VITALS: BP 99/63
--- NOTE | 2020-08-17 01:02 | NUR ---
PATIENT FAILED BEDSIDE SWALLOW. MOST OF 2100 MEDICATIONS GIVEN. PATIENT HAS BEEN MADE STRICT NPO UNTIL FURTHER EVALUATED BY SPEECH THERAPY 08/16.
[2020-08-17 05:15] LABS: CALCIUM 6.8 mg/dL (8.5-10.1); CREATININE 1.6 mg/dL (0.6-1.0); POTASSIUM 3.7 mmol/L (3.5-5.1)
[2020-08-17 05:18] VITALS: BP 122/71
[2020-08-17 08:00] VITALS: BP 97/60
[2020-08-17 08:42] LABS: HEMATOCRIT 28.1 % (37.0-47.0); HEMOGLOBIN 9.1 gm/dL (12.0-15.0); MCH 34.2 pg (26.0-34.0); MCHC 32.4 g/dL (28.0-37.0); MCV 105.3 fL (80.0-100.0); PLATELET COUNT 284 thou/uL (150-400); RBC 2.67 mil/uL (4.20-5.00); RDW 15.7 % (10.5-14.5); WBC 12.6 thou/uL (4.0-11.0)
[2020-08-17 09:40] LABS: PLATELET ESTIMATE NORMAL; TARGET CELLS 1+
--- NOTE | 2020-08-17 12:04 | NUR ---
Case discussed with the care team. Pt with worsening respiratory status and weakness and confusion. Dc planning visit to review [employer] [facility] listing and possible rehab needs at dc deferred. 5N also following along. No weekend dc anticipated. Will f/u with pt regarding rehab needs and recommendations as the pt is able to participate. She was indep and working prior to admission with noted sign decline in her overall functional status. Will follow.
[2020-08-17 12:15] VITALS: BP 171/60
[2020-08-17 15:35] VITALS: BP 94/56
[2020-08-17 21:00] VITALS: BP 105/59
[2020-08-18] VITALS (28 sets, daily range): BP systolic 56–122; BP diastolic 20–90
--- NOTE | 2020-08-18 02:14 | NUR ---
AT APPROXIMATELY 0115 NURSE BROUGHT TO PATIENTS ROOM DUE TO SOUNDING CONTINUOUS SATURATION MONITOR. PATIENT WAS TACHYPNIC, WRITHING IN PAIN WHICH WAS KNOCKING FACE SHIELD OUT OF POSITION. NURSE GAVE PRN ORDER FOR 2MG MORPHINE WITH NO RESULT. RT CALLED TO ASSESS SITUATION. CALL PLACED TO PULMONOLOGY WITH ORDERS PLACED FOR BIPAP WHICH WAS PROMPTLY PLACED ON PATIENT, AND FOR NURSE TO GIVE PRN ATIVAN FOR RESTLESSNESS. PATIENTS ANXIETY HAS SLOWLY RECEDED WITH RESPIRATORY RATE SLOWING DOWN AND SATURATIONS CLOSE TO 100%. NURSE TO CONTINUE TO MONITOR.
--- NOTE | 2020-08-18 11:01 | NUR ---
Pt has had poor intake > 1 week and now npo past 3 days with aspiration risk. Recommend start nutrition support.
[2020-08-18 12:05] LABS: CALCIUM 7.4 mg/dL (8.5-10.1); CREATININE 1.6 mg/dL (0.6-1.0); POTASSIUM 3.6 mmol/L (3.5-5.1)
[2020-08-18 13:10] LABS: HEMOGLOBIN 10.1 gm/dL (12.0-15.0)
[2020-08-18 13:12] LABS: HEMATOCRIT 31.5 % (37.0-47.0); MCH 32.3 pg (26.0-34.0); PLATELET COUNT 322 thou/uL (150-400); RBC 3.12 mil/uL (4.20-5.00); RDW 15.5 % (10.5-14.5); WBC 12.6 thou/uL (4.0-11.0)
[2020-08-18 13:31] LABS: ABSOLUTE NEUTROPHILS 11.7 thou/uL (1.4-8.2); PLATELET ESTIMATE NORMAL
[2020-08-18 13:56] LABS: BE(vivo) -5.8 mmol/L (-2 to +3); HCO3 19.4 mmol/L (22.0-26.0); PCO2 37.3 mmHg (35.0-45.0); PO2 71.7 mmHg (80.0-100.0); pH 7.335 (7.360-7.450); sO2 93.6 % (92.0-98.0)
--- NOTE | 2020-08-18 17:02 | NUR ---
Upon assessment this morning at 0745 patient was oriented x0, unable to answer questions or follow commands, eyes were opening spontaneously. This was an acute change per night RN, who stated the patient was following commands and was oriented to place and location. Patient intermittently turning head side to side, appeared anxious, was tachypnic (RR 45) and occasionally pulled at bipap mask. Ativan 0.5mg given once. Caro order was requested as patient had minimal UO, incontinent, unable to achieve accurate I/O. Poor UO over the next few hrs (<30/mh). Dr. Spencer and Dr. Nolasco were both notified. Family at bedside updated. I discussed situation again with Dr. Nolasco as I felt she did require ICU level of care. Yelitza, STEAMSH[employer] AGENT was given report, patient assisted to room 239.
--- NOTE | 2020-08-18 18:18 | NUR ---
[id number] PLACED RT IJ
--- NOTE | 2020-08-18 19:43 | NUR ---
TRANSFERRED TO ICU FOR HIGH ACUITY/PATIENT MANAGEMENT. O2 DEMANDS DECREASED, CURRENT FIO2 AT 45%. RECTAL TUBE PLACED FOR C.DIFF CONTAINMENT. RIGHT IJ TRIPLE LUMEN CENTRAL LINE PLACED TODAY. FAMILY UPDATED.
[2020-08-19] VITALS (95 sets, daily range): BP systolic 82–115; BP diastolic 49–91
[2020-08-19 04:18] LABS: PLATELET COUNT 256 thou/uL (150-400)
[2020-08-19 04:21] LABS: HEMATOCRIT 27.4 % (37.0-47.0); MCH 32.8 pg (26.0-34.0); MCV 99.6 fL (80.0-100.0); RBC 2.75 mil/uL (4.20-5.00); WBC 10.6 thou/uL (4.0-11.0)
[2020-08-19 04:40] LABS: CALCIUM 7.3 mg/dL (8.5-10.1); CREATININE 1.4 mg/dL (0.6-1.0); MAGNESIUM 1.8 mg/dL (1.8-2.4)
[2020-08-19 04:43] LABS: POTASSIUM 2.8 mmol/L (3.5-5.1)
[2020-08-19 05:28] LABS: ABSOLUTE NEUTROPHILS 8.9 thou/uL (1.4-8.2)
[2020-08-19 05:29] LABS: POIKILOCYTOSIS 3+; TARGET CELLS 3+
[2020-08-19 05:30] LABS: ANISOCYTOSIS 1+; BURR CELLS 1+; MACROCYTES 1+
[2020-08-19 05:31] LABS: POLYCHROMASIA 1+; SCHISTOCYTES RARE
[2020-08-19 05:32] LABS: HOWELL-JOLLY BODIES OCCASIONAL
[2020-08-19 05:33] LABS: PLATELET ESTIMATE NORMAL
--- NOTE | 2020-08-19 07:50 | NUR ---
Pt TRANSFERRED TO ICU. WILL PLACE ON HOLD AND AWAIT NEW ORDERS WHEN APPROPRIATE
--- NOTE | 2020-08-19 07:50 | NUR ---
PER CHART REVIEW, PT. HAS TRANSFERRED TO ICU DUE TO MEDICAL ACUITY. WILL PLACE PT. ON HOLD AND WAIT FOR NEW ORDERS TO RESUME THERAPY WHEN PT. IS MEDICALLY STABLE/APPROPRIATE FOR THERAPY INTERVENTION.
--- NOTE | 2020-08-19 11:15 | NUR ---
Nurse talked with Dr. Nolasco who expressed it is okay for patient to be off bipap and on nasal cannula. Physician then expressed Dr. Mcclain will be rounding today.
[2020-08-19 15:48] LABS: CALCIUM 7.3 mg/dL (8.5-10.1); CREATININE 1.5 mg/dL (0.6-1.0); POTASSIUM 3.3 mmol/L (3.5-5.1)
[2020-08-19 16:46] LABS: HEMATOCRIT 28.3 % (37.0-47.0); MCV 103.3 fL (80.0-100.0); RBC 2.74 mil/uL (4.20-5.00); RDW 15.1 % (10.5-14.5); WBC 10.2 thou/uL (4.0-11.0)
--- NOTE | 2020-08-19 20:14 | NUR ---
Partial sepsis protocol performed. Lactic acid noted, labs noted. No new orders at this time from Dr. Mcclain with update on status.
[2020-08-20] VITALS (75 sets, daily range): BP systolic 81–125; BP diastolic 46–94
[2020-08-20 03:25] LABS: MCH 33.3 pg (26.0-34.0); MCHC 33.5 g/dL (28.0-37.0); MCV 99.4 fL (80.0-100.0); RBC 1.9 mil/uL (4.20-5.00); RDW 15.2 % (10.5-14.5); WBC 9.4 thou/uL (4.0-11.0)
[2020-08-20 03:27] LABS: HEMOGLOBIN 6.3 gm/dL (12.0-15.0)
[2020-08-20 03:28] LABS: HEMATOCRIT 18.9 % (37.0-47.0)
[2020-08-20 03:35] LABS: ALBUMIN 1.9 g/dL (3.4-5.0); CALCIUM 7.2 mg/dL (8.5-10.1); CREATININE 1.3 mg/dL (0.6-1.0); MAGNESIUM 1.6 mg/dL (1.8-2.4); POTASSIUM 3.3 mmol/L (3.5-5.1); TOTAL BILIRUBIN 0.8 mg/dL (0.2-1.0); TOTAL PROTEIN 4.5 g/dL (6.4-8.2)
[2020-08-20 04:17] LABS: HEMATOCRIT 19.3 % (37.0-47.0); HEMOGLOBIN 6.4 gm/dL (12.0-15.0)
[2020-08-20 11:58] LABS: BE(vivo) -6.4 mmol/L (-2 to +3); HCO3 18.1 mmol/L (22.0-26.0); PCO2 31.6 mmHg (35.0-45.0); pH 7.375 (7.360-7.450); sO2 93.2 % (92.0-98.0)
[2020-08-20 14:37] LABS: HEMATOCRIT 19.5 % (37.0-47.0)
[2020-08-20 14:38] LABS: HEMOGLOBIN 6.4 gm/dL (12.0-15.0)
[2020-08-20 14:42] LABS: CALCIUM 7.3 mg/dL (8.5-10.1); CREATININE 1.2 mg/dL (0.6-1.0); POTASSIUM 3.1 mmol/L (3.5-5.1)
--- NOTE | 2020-08-20 16:13 | NUR ---
1 UNIT PRBCS INFUSED FOR HGB OF 6.4. POTASSIUM 3.3 AND MG 1.6 ALSO REPLACED. RECHECK AT 1400 WAS HGB 6.4, POTASSIUM 3.[address] HUERTA NOTIFIED ABOUT HGB AND BLOOD NOTED IN FECAL MANAGEMENT TUBE. SON AT BEDSIDE AND UPDATED ON PATIENT PROGRESS AND CONDITION. FAMILY NOW WANTS PATIENT TO BE DNR. VERY LETHARGIC, DOES NOT RESPOND VERBALLY AND DOES NOT FOLLOW COMMANDS.
[2020-08-21] VITALS (22 sets, daily range): BP systolic 71–128; BP diastolic 53–89
[2020-08-21 04:38] LABS: CALCIUM 7.1 mg/dL (8.5-10.1); CREATININE 1.4 mg/dL (0.6-1.0); POTASSIUM 3.6 mmol/L (3.5-5.1)
[2020-08-21 04:41] LABS: HEMOGLOBIN 7.2 gm/dL (12.0-15.0); MCH 31.3 pg (26.0-34.0); MCHC 32.5 g/dL (28.0-37.0); MCV 96.4 fL (80.0-100.0); RBC 2.28 mil/uL (4.20-5.00); RDW 17.7 % (10.5-14.5); WBC 5.1 thou/uL (4.0-11.0)
[2020-08-21 05:01] LABS: BE(vivo) -17.8 mmol/L (-2 to +3); HCO3 11.3 mmol/L (22.0-26.0); PO2 109.1 mmHg (80.0-100.0); sO2 95.7 % (92.0-98.0)
[2020-08-21 05:05] LABS: pH 7.058 (7.360-7.450)
[2020-08-21 07:28] LABS: BE(vivo) -14.4 mmol/L (-2 to +3); HCO3 12.6 mmol/L (22.0-26.0); PCO2 33.2 mmHg (35.0-45.0); PO2 94.7 mmHg (80.0-100.0); sO2 95.7 % (92.0-98.0)
[2020-08-21 07:30] LABS: pH 7.196 (7.360-7.450)
--- NOTE | 2020-08-21 08:22 | NUR ---
ASSUMED PT CARE AROUND 1900. 1 UNIT PRBCS GIVEN ORDERED. PT TOLERATED WELL. PT MOANED AND C/O PAIN WHEN TOUCHED. MORPHINE GIVEN WITH SOME RELIEF. PT WAS RESTLESS DURING FIRST PART OF THE SHIFT. SPO2 87-90% ON 3L NC. TITRATED O2 UP TO 5-6L NC. RT PLACED PT ON BIPAP AROUND 2345. FIO2 INCREASED FROM 50% TO 70% TO KEEP SPO2 >90-92%. PT NOTED TO BECOME GRADUALLY MORE TACHYCARDIAC, HR 120S-130S. DURING ASSESSMENT AT 0430, PT NOTED TO BE VERY LETHARGIC. SHE APPEARED MORE PALE, HR 130S-140S, AND SHE WAS NOTED TO HAVE BLOOD WITH LARGE CLOTS AROUND HER FECAL MGT TUBE. ALSO NOTED TO HAVE SUDDEN DECREASE IN URINE OUTPUT AND SAVI BLOOD IN URINE. NOAM ZUÑIGA FOR HOSPITALIST ROUNDED ON UNIT AND WAS UPDATED ON PT STATUS CHANGE. DR BLACKMAN WAS NOTIFIED OF CRITICAL ABG RESULTS AND PT'S STATUS. ORDERS RECEIVED. PAGED GI PHYSICIAN VIA ANSWERING SERVICE. NO CALL BACK RECEIVED. CALLED NOAM ZUÑIGA AGAIN WITH UPDATE AND FOR ORDERS. 1 MORE UNIT RBCS GIVEN FOR ACTIVE BLEEDING. AROUND 0540, THIS RN CALLED PT'S SON MYKE AND NAPOLEON VIEIRA TO PROVIDE UPDATE. MESSAGES LEFT. DARIEL CALLED BACK AROUND 0550 AND WAS UPDATED ON CHANGE IN PT'S STATUS. FAMILY WAS ENCOURAGED TO COME VISIT PT IF THEY ARE ABLE. REPORT WAS GIVEN TO ONCOMING NURSE.
--- NOTE | 2020-08-21 16:23 | NUR ---
THIS MINE FOREMAN MET A GRANDSON COMING TO SEE THE PATIENT AROUND 0830 HOURS. THE PATIENT WAS PASSING DURING ROUNDING AFTER 1100 HOURS. THIS MINE FOREMAN WAS ABLE TO VISIT WITH AND PRAY WITH THE DAUGHTER AND GRAND DAUGHTER. WE DID LIFE REVIEW AND DISCUSSED THE STRONG ETHNIC HERITAGE AND THE RICH [place] HISTORY IN THE "[facility]" [place] [facility] [place], [place].
== END 2020-08-21 11:25 | DRG 853 ==
LOC: ER 16:07 → 2N 18:50 → EROBS 18:50 → 2N 20:12 → ICU 08-18 16:34
PROVIDERS: Hospitalist; Internal Medicine; Internal Medicine Pulmonary Disease; Nurse Practitioner; Nurse Practitioner Family; ADMIT Internal Medicine; ATTEND Internal Medicine
PROC: 04CK3ZZ Extirpation of Matter from Right Femoral Artery, Percutaneous Approach (ICD-10-PCS; principal; 2020-08-15)
PROC: 047J3DZ Dilation of Left External Iliac Artery with Intraluminal Device, Percutaneous Approach (ICD-10-PCS; principal; 2020-08-15)
PROC: 047H3DZ Dilation of Right External Iliac Artery with Intraluminal Device, Percutaneous Approach (ICD-10-PCS; principal; 2020-08-15)
PROC: 047D3DZ Dilation of Left Common Iliac Artery with Intraluminal Device, Percutaneous Approach (ICD-10-PCS; principal; 2020-08-15)
PROC: B4181ZZ Fluoroscopy of Bilateral Renal Arteries using Low Osmolar Contrast (ICD-10-PCS; principal; 2020-08-15)
PROC: B41D1ZZ Fluoroscopy of Aorta and Bilateral Lower Extremity Arteries using Low Osmolar Contrast (ICD-10-PCS; principal; 2020-08-15)
PROC: 047K3Z1 Dilation of Right Femoral Artery using Drug-Coated Balloon, Percutaneous Approach (ICD-10-PCS; principal; 2020-08-15)
PROC: 5A09457 Assistance with Respiratory Ventilation, 24-96 Consecutive Hours, Continuous Positive Airway Pressure (ICD-10-PCS; 2020-08-18)
PROC: 02HV33Z Insertion of Infusion Device into Superior Vena Cava, Percutaneous Approach (ICD-10-PCS; 2020-08-18)
PROC: 30233N1 Transfusion of Nonautologous Red Blood Cells into Peripheral Vein, Percutaneous Approach (ICD-10-PCS; 2020-08-20)
PROC: 5A09357 Assistance with Respiratory Ventilation, Less than 24 Consecutive Hours, Continuous Positive Airway Pressure (ICD-10-PCS; 2020-08-20)
PROC: 5A09357 Assistance with Respiratory Ventilation, Less than 24 Consecutive Hours, Continuous Positive Airway Pressure (ICD-10-PCS; 2020-08-21)
DX: A41.9 Sepsis, unspecified organism (principal); L89.323 Pressure ulcer of left buttock, stage 3; L89.313 Pressure ulcer of right buttock, stage 3; L89.153 Pressure ulcer of sacral region, stage 3; N17.0 Acute kidney failure with tubular necrosis; G92 Toxic encephalopathy; J96.01 Acute respiratory failure with hypoxia; E43 Unspecified severe protein-calorie malnutrition; K85.90 Acute pancreatitis without necrosis or infection, unspecified; R65.21 Severe sepsis with septic shock; J69.0 Pneumonitis due to inhalation of food and vomit; D65 Disseminated intravascular coagulation [defibrination syndrome]; A04.72 Enterocolitis due to Clostridium difficile, not specified as recurrent; K50.90 Crohn's disease, unspecified, without complications; J91.8 Pleural effusion in other conditions classified elsewhere; Z68.1 Body mass index [BMI] 19.9 or less, adult; K86.1 Other chronic pancreatitis; I47.1 Supraventricular tachycardia; I82.4Z1 Acute embolism and thrombosis of unspecified deep veins of right distal lower extremity; Q89.01 Asplenia (congenital); K92.2 Gastrointestinal hemorrhage, unspecified; D64.9 Anemia, unspecified; I07.1 Rheumatic tricuspid insufficiency; E11.51 Type 2 diabetes mellitus with diabetic peripheral angiopathy without gangrene; G89.4 Chronic pain syndrome; E11.22 Type 2 diabetes mellitus with diabetic chronic kidney disease; N18.9 Chronic kidney disease, unspecified; L89.619 Pressure ulcer of right heel, unspecified stage; F41.1 Generalized anxiety disorder; K52.9 Noninfective gastroenteritis and colitis, unspecified; I99.8 Other disorder of circulatory system; S80.212A Abrasion, left knee, initial encounter; E11.42 Type 2 diabetes mellitus with diabetic polyneuropathy; Z51.5 Encounter for palliative care; I95.9 Hypotension, unspecified; S80.211A Abrasion, right knee, initial encounter; W18.39XA Other fall on same level, initial encounter; Z20.822 Contact with and (suspected) exposure to COVID-19; Y93.89 Activity, other specified; Z79.899 Other long term (current) drug therapy; Z79.4 Long term (current) use of insulin; Y92.89 Other specified places as the place of occurrence of the external cause; Z90.49 Acquired absence of other specified parts of digestive tract; Y99.8 Other external cause status; Z87.891 Personal history of nicotine dependence
CPT/HCPCS: 10081; 10203; 85076